=== PATIENT | female | born 2000 | race Asian ===

== ENCOUNTER 2023-06-18 09:47 | Emergency (ER) | payer OTHER ==
[2023-06-18 10:29] VITALS: BP 124/86; PULSE 97; RESP 16; TEMP 97.6; BMI 20.5
== END 2023-06-18 11:38 | disposition home or self-care (01) ==
LOC: FER 09:47
DX: S06.0X0A Concussion without loss of consciousness, initial encounter (principal); R11.2 Nausea with vomiting, unspecified; R51.9 Headache, unspecified; W22.8XXA Striking against or struck by other objects, initial encounter
CPT/HCPCS: 70450-TC; 70486-TC; 99284-25